=== PATIENT | male | born 1965 | race Caucasian/White ===

== ENCOUNTER 2018-05-16 08:13 | Day surgery (SDC) | payer OTHER ==
[2018-05-16] MEDS ORDERED: SUCCINYLCHOLINE CHLORIDE 100 MG/5 ML SYG IV (09:57)
[2018-05-16] MEDS ORDERED: METOCLOPRAMIDE 10 MG INJ (09:57)
[2018-05-16] MEDS ORDERED: ONDANSETRON 4 MG INJ (09:57)
[2018-05-16] MEDS ORDERED: FAMOTIDINE 20 MG INJ (09:57)
[2018-05-16] MEDS ORDERED: LIDOCAINE 2% (SDV) 5 ML INJ (09:57)
[2018-05-16] MEDS ORDERED: PROPOFOL 20 ML (09:57)
[2018-05-16] MEDS ORDERED: OXYCODONE/ACETAMINOPHEN (5/325) TAB PO ×2 (10:00)
[2018-05-16] MEDS ORDERED: ONDANSETRON 4 MG INJ IV (10:00)
[2018-05-16] MEDS ORDERED: MEPERIDINE 25 MG INJ IV (10:00)
[2018-05-16] MEDS ORDERED: LABETALOL HCL 20MG INJ IV (10:00)
[2018-05-16] MEDS ORDERED: FENTAnyl 50 MCG/ML VIAL IV ×3 (10:00)
[2018-05-16] MEDS ORDERED: LABETALOL HCL 20MG INJ (10:20)
[2018-05-16] MEDS ORDERED: FENTAnyl 50 MCG/ML VIAL (10:30)
[2018-05-16] MEDS: RACEPINEPHRINE 2.25%(NEB) 0.5 ML AMP HHN (10:55)
[2018-05-16] MEDS: LIDOCAINE 1% (MPF) 30 ML INJ (11:09)
== END 2018-05-16 13:49 | disposition home or self-care (01) ==
LOC: SDS 08:13
DX: J18.9 Pneumonia, unspecified organism (principal); I10 Essential (primary) hypertension; E11.9 Type 2 diabetes mellitus without complications; Z87.891 Personal history of nicotine dependence
CPT/HCPCS: 31625; 71045; 82962; 87070; 87102; 87116; 88104; 88107; 88305; 88312; 94664